=== PATIENT | male | born 1950 | race Caucasian/White ===

== ENCOUNTER → 2020-03-26 11:09 | Outpatient (CLI) | payer OTHER, SELFPAY ==
[2020-03-26 13:21] LABS: COVID19 -Nasal RAPID Negative (Negative)
== END ==
PROVIDERS: PCP Internal Medicine; Visit Provider Surgery
DX: Z11.59 Encounter for screening for other viral diseases (principal)
CPT/HCPCS: 87635; C9803

== ENCOUNTER 2020-03-27 09:08 | Day surgery (SDC) | payer OTHER, SELFPAY ==
[2020-03-23 13:22] VITALS: BMI 24.0
[2020-03-27] VITALS (7 sets, daily range): BP systolic 102–132; BP diastolic 64–75; PULSE 50–54; RESP 12–17; TEMP 35.7–36.2; O2SAT 97–98; BMI 24.0
[2020-03-27] MEDS: LACTATED RINGERS 1,000 ML 100 ML IV (09:42)
--- NOTE | 2020-03-27 10:25 | PM.HP.1 ---
History of Present Illness History of Present Illness Date Patient Seen: 03/27/20 Time Patient Seen: 10:26 Chief complaint: RIH REPAIR W/MESH Narrative: 69-year-old male he is here for an elective right inguinal hernia repair. No interval changes in health. Please see H&P from December 2019 for further detail. Patient History Medical History Heart murmur Irregular heartbeat Syncope Surgical History No history of previous surgery Family & Social History Family History Sister Multiple myeloma Social History: household members spouse Tobacco & Substance use: Smoking Status Former smoker alcohol intake current alcohol intake frequency 0-2 drinks per day Substance Use Type does not use Meds Home Medications and Allergies Home Medications Medication Instructions Recorded Confirmed Type ascorbate calcium (vitamin C) 500 500 mg PO DAILY 01/05/20 03/23/20 History mg tablet cholecalciferol (vitamin D3) 10 4,000 unit PO DAILY 01/05/20 03/23/20 History mcg (400 unit) capsule metoprolol succinate 25 mg capsule 25 mg PO DAILY 01/05/20 03/27/20 History sprinkle, ext. release 24 hr multivitamin 1 cap PO DAILY 01/05/20 03/23/20 History acetaminophen [Tylenol] 650 mg PO QID PRN #60 cap 03/27/20 Rx docusate sodium [Colace] 100 mg PO BID #30 cap 03/27/20 Rx oxycodone 5 mg PO Q6H PRN #30 tab 03/27/20 Rx Allergies Allergy/AdvReac Type Severity Reaction Status Date / Time guaifenesin Allergy Unknown Breathing Verified 03/23/20 13:27 constriction Review of Systems Review of Systems Narrative: A 10 point review of systems is negative except as noted in the HPI Exam Vital Signs (past 8 hours): - 03/27/20 09:21 Temperature 97.2 F L Pulse Rate 54 L Respiratory Rate 16 Blood Pressure 120/64 Pulse Oximetry 97 Oxygen Delivery Method Room Air Narrative Exam Narrative: General-no acute distress, well nourished HEENT-moist mucous membranes, no scleral icterus Neck-supple, no lymphadenopathy Chest- non labored respirations, clear to auscultation bilaterally Cardiac-regular rate no peripheral edema Abdomen-reducible right inguinal hernia Extremities-warm, well perfused Neurological-alert and oriented, no focal deficits Assessment & Plan Assessment & Plan narrative: 69-year-old man with a reducible right inguinal hernia here for elective repair. We discussed technical nature of the procedure the operative risks including bleeding infection recurrence damage to surrounding structures chronic pain. His questions have been answered he is in agreement with this plan will proceed to the operating room.
[2020-03-27] MEDS: CEFAZOLIN 2 GM/100 ML FROZ.PIGGY IV (10:37)
--- NOTE | 2020-03-27 10:56 | SUR.OPER ---
Supine on padded OR bed, head on pillow, arms secured on padded arm boards at <90 degrees abduction, legs uncrossed, safety belt at thigh, tape over blanket over lower legs.
[2020-03-27] MEDS: BUPIVACAINE 0.25% (PF) VIAL 30 ML INJ (11:06)
--- NOTE | 2020-03-27 12:02 | PM.OP.1 ---
Operative Date/Time/Diagnoses Date of procedure: 03/27/20 Time of procedure: 12:02 Pre-op diagnosis: Right inguinal hernia Post-op diagnosis: same Procedure & Clinicians Procedure: Open right inguinal hernia repair with mesh Same procedure as scheduled: Yes Indications: 69-year-old man symptomatic reducible right inguinal hernia here for elective repair Surgeon: Arcadio Delgado Anesthesia Type: General Operative Notes Findings: Direct and indirect hernia defect Estimated Blood Loss (mL): 20 Procedure in detail: The patient was placed supine on the table and bilateral lower extremity compression devices were applied. Anesthesia was induced they were intubated with an LMA and received 2g of Ancef. A time-out was performed. They were prepped and draped in sterile fashion. The right external inguinal ring and the anterior superior iliac crest were identified and marked. 1 finger breath above the inguinal ligament the skin was infiltrated with 0.25% bupivacaine. The skin incision was made here and the subcutaneous tissues were divided with electrocautery exposing the external oblique aponeurosis which was then opened along the direction of its fibers. Using blunt dissection the internal oblique aporneurosis was from the external oblique upper leaflet to identify the iliohypogastric nerve. Using a kittner the cord was carefully dissected away from the inguinal canal adjacent to the pubic tubercle. The cord including the vas deferens, testicular bloody supply, ilioguinal and genital nerve were encircled with a Lila drain. A direct floor defect was identified and it was reduced into the abdomen and the internal oblique aporneuorsis was approximated to the inguinal ligament with Ethibond suture to reapproximate the floor. The cremasteric fibers surrounding the cord were divided using electrocautery adjacent to the internal ring.. The vas deferens and the testicular vessels were preserved and protected. There was a small indirect hernia on the anterior medial aspect of the cord which was skeletonized away from the vas deferens and testicular blood supply. The indirect hernia was skeletonized back to the internal ring and reduced spontaneously into the abdomen. I selected a 7x 15 cm lightweight Pro Loop hernia mesh. The inferior medial aspect of the mesh was anchored to insertion of the rectus muscle to the pubic tubercle such that there was approximately 2 cm of tubercle overlap with Ethibond and then was run continuously along the inferior edge of the mesh to the shelving edge of the inguinal ligament. Interrupted 3 0 Vicryl suture was used to anchor the superior aspect of the mesh to the conjoined tendon in several places. The tails were then reapproximated loosely around the spermatic cord. The tails of the mesh were then tucked under the external oblique aponeurosis. The repair was checked for hemostasis. The wound was irrigated with sterile saline. The external oblique aponeurosis was reapproximated in a running fashion using 3 0 Vicryl. The subcutaneous tissues were reapproximated with 3 0 Vicryl skin closed with 4 0 Monocryl followed by the application of Dermabond. At the end of the operation I ensured that both testicles were within the scrotum. The sponge instrument count at the end operation was correct. The patient emerged from anesthesia was extubated and transferred to the postoperative care unit in stable condition. A total of 30 ml of of 0.25% bupivicaine was used to infiltrate the skin. Post-operative Condition: stable Disposition: same day surgery
[2020-03-27] MEDS: ACETAMINOPHEN 325 MG TABLET 650 MG PO (12:21)
[2020-03-27] MEDS: OXYCODONE IR 5 MG TABLET PO (12:22)
== END 2020-03-27 13:11 | disposition home or self-care (01) ==
PROVIDERS: PCP Internal Medicine; Referring Provider Surgery; Visit Provider Surgery
PROC: (CPT 49505; principal; 2020-03-27 10:15)
DX: K40.90 Unilateral inguinal hernia, without obstruction or gangrene, not specified as recurrent (principal); R01.1 Cardiac murmur, unspecified
CPT/HCPCS: 49505; C1781; J0690; J1100; J2405; J2704; J3010

== ENCOUNTER → 2022-03-19 09:12 | Outpatient (CLI) | payer OTHER, SELFPAY ==
[2022-03-19 12:27] LABS: COVID19 -Nasal RAPID Negative (Negative)
== END ==
PROVIDERS: PCP Internal Medicine; Visit Provider Surgery
DX: Z20.822 Contact with and (suspected) exposure to COVID-19 (principal); Z01.812 Encounter for preprocedural laboratory examination
CPT/HCPCS: 87635; C9803

== ENCOUNTER 2022-03-20 07:48 | Day surgery (SDC) | payer OTHER, SELFPAY ==
--- NOTE | 2022-03-20 | PATH_ITS ---
[facility] Accession Number: [id number] . 01 Material submitted: . colon - CECAL POLYP . 01 Diagnosis: Cecal Polyp, Biopsy: Tubular adenoma. MRV 03/24/2022 1324 Local . 01 Electronically signed: . Alex Fink MD, PhD, Pathologist NPI- [id number] . 01 Gross description: . CECAL POLYP: Received in formalin is 1 fragment(s) of rodriguez, soft tissue measuring 0.2 x 0.2 x 0.2 cm submitted entirely in 1 cassette(s) /CPE 03/22/2022 1030 Local . 01 Pathologist provided ICD-10: D12.0 . 01 CPT . 152419 Specimen Comment: A courtesy copy of this report has been sent to [phone] Performed at: 01 [facility] [address] [place] [address] [id number] MD Jag Burt MD Phone: [phone]
[2022-03-20 08:05] VITALS: BP 117/70; PULSE 53; RESP 16; TEMP 36.1; O2SAT 98; BMI 23.7
[2022-03-20] MEDS: LACTATED RINGERS 1,000 ML 84 ML IV (08:20)
--- NOTE | 2022-03-20 08:56 | PM.HP.1 ---
History of Present Illness History of Present Illness Date Patient Seen: 03/20/22 Time Patient Seen: 08:56 Chief complaint: SCREENING COLONOSCOPY Narrative: Deni is a 71-year-old man who is here for colonoscopy. He has had 2 in the past most recently about 5 years ago and he thinks some polyps were removed. He has no known family history of colon cancer. Patient History Medical History Benign prostatic hyperplasia with lower urinary tract symptoms Combined form of senile cataract Decreased libido Family history of prostate cancer Heart murmur High prostate specific antigen (PSA) Idiopathic osteoarthritis Inguinal hernia without obstruction or gangrene Irregular heartbeat Keratoconjunctivitis sicca not specified as Sjogren's Nonexudative age-related macular degeneration Posterior vitreous detachment SVT (supraventricular tachycardia) Syncope Surgical History No history of previous surgery Family & Social History Family History Sister Multiple myeloma Social History: household members spouse Tobacco & Substance use: Smoking Status Former smoker alcohol intake current alcohol intake frequency 0-2 drinks per day Substance Use Type does not use Meds Home Medications and Allergies Home Medications Medication Instructions Recorded Confirmed Type ascorbate calcium (vitamin C) 500 500 mg PO DAILY 01/05/20 05/13/21 History mg tablet cholecalciferol (vitamin D3) 10 4,000 unit PO DAILY 01/05/20 05/13/21 History mcg (400 unit) capsule metoprolol succinate 25 mg capsule 25 mg PO DAILY 01/05/20 05/13/21 History sprinkle, ext. release 24 hr multivitamin 1 cap PO DAILY 01/05/20 05/13/21 History acetaminophen 325 mg capsule 650 mg PO QID PRN pain #60 caps 03/27/20 03/20/22 Rx (Tylenol) benzonatate 100 mg capsule 100 mg PO BID-TID PRN cough #14 10/09/21 10/09/21 Rx caps Allergies Allergy/AdvReac Type Severity Reaction Status Date / Time guaifenesin Allergy Unknown Breathing Verified 03/20/22 08:02 constriction Exam Vital Signs (past 8 hours): - 03/20/22 08:05 Temperature 96.9 F L Pulse Rate 53 L Respiratory Rate 16 Blood Pressure 117/70 Pulse Oximetry 98 Oxygen Delivery Method Room Air Oxygen Delivery Method Room Air Const General: healthy appearing Assessment & Plan Assessment and plan (1) Personal history of colonic polyps: Status: Acute Plan 71-year-old man with a personal history of colon polyps here for colonoscopy. We reviewed the risks and benefits of colonoscopy he would like to proceed. Time Spent With Patient Critical Care time: I spent a total of [] minutes of critical care time on this patient's care today; this time is exclusive of procedural time.
--- NOTE | 2022-03-20 09:17 | PM.OP.COLON ---
Operative Date/Time/Diagnoses Date of procedure: 03/20/22 Time of procedure: 09:17 Pre-op diagnosis: Colon cancer screening and personal history of polyps Post-op diagnosis: same Procedure & Clinicians Study performed: Colonoscopy Same procedure as scheduled: Yes Surgeon: Eleuterio Tse Procedure Notes Procedure in detail: Surgeon: Eleuterio Tse MD Anesthesia: MAC by Dr. Vazquez Procedure: The patient was brought to the endoscopy suite, placed in left lateral decubitus position. The patient was connected to monitoring devices. A time-out was performed. Sedation was administered. Once the patient was adequately sedated, a digital rectal exam was performed and was normal. The scope was then inserted and advanced to the cecum where the appendiceal orifice was identified and photographed. The scope was then slowly withdrawn over greater than 6 minutes. The mucosa was thoroughly inspected. There was a 4 mm polyp cecum. It was removed with a cold snare. Were a few diverticula in the sigmoid colon. The scope was retroflexed in the rectum. Abnormalities were noted. The scope was straightened and removed. The patient was awakened and brought to recovery. Scope withdrawal time: 8 Sedation time: 12 EBL: 2 mL Findings: Small cecal polyp Post-procedure Recommendations: Will call with biopsy results Disposition: PACU
[2022-03-20 09:20] VITALS: BP 84/55; PULSE 53; RESP 16; TEMP 36.7; O2SAT 96
[2022-03-20 09:26] VITALS: BP 103/75; PULSE 70; RESP 16; O2SAT 98
[2022-03-20 09:30] VITALS: BP 98/72; PULSE 62; RESP 19; O2SAT 98
[2022-03-20 09:35] VITALS: BP 136/74; PULSE 61; RESP 15; TEMP 36.5; O2SAT 98
[2022-03-20 09:40] VITALS: BP 123/76; PULSE 54; RESP 17; TEMP 36.4; O2SAT 99
== END 2022-03-20 10:07 | disposition home or self-care (01) ==
PROVIDERS: PCP Internal Medicine; Referring Provider Surgery; Visit Provider Surgery
PROC: 0DJD8ZZ Inspection of Lower Intestinal Tract, Via Natural or Artificial Opening Endoscopic (ICD-10-PCS; CPT 45378; principal; 2022-03-20 08:45)
DX: Z12.11 Encounter for screening for malignant neoplasm of colon (principal); Z86.010 Personal history of colon polyps; D12.0 Benign neoplasm of cecum
CPT/HCPCS: 45385; J2704; J3010

== ENCOUNTER → 2022-04-25 07:59 | Outpatient (CLI) | payer OTHER, SELFPAY ==
--- NOTE | 2022-04-25 | DI.MRI.S_ITS ---
PROCEDURE: MR LUMBAR SPINE WO CON INDICATIONS: Sciatica left side TECHNIQUE: Noncontrast sagittal T1 spin echo and T2 fast echo, sagittal STIR, and T2 fast spin echo through the lumbar spine. COMPARISON: [facility], CR, L-SPINE 2-3 VIEWS, 03/10/2011, 12:56. [facility], , L-SPINE WITHOUT CONTRAST, 07/31/2011, 20:10. FINDINGS: Image quality: Excellent. Alignment and Curvature: There is normal bony alignment. Bone Marrow: 6 [id number] lumbar type vertebra are seen. For the purposes of this report, the lowest well-formed disc space is designated as L5-S1 and the thoracolumbar transitional element is designated as T12. This is in keeping with the numbering system used on the prior MRI from 2011. Marrow is of normal overall signal. No acute vertebral body compression fractures. A benign-appearing hemangioma is seen in the L1 vertebral body. Mild Modic degenerative endplate changes are seen at the right aspect of the L5 superior endplate with trace edema on STIR images. Spinal Cord: Conus medullaris terminates at the T12-L1 disc space level. Visualized cord demonstrates normal signal and size. Paraspinous Soft Tissues: No paravertebral masses. There is grade 2 fatty infiltration of the lower paraspinous musculature. T12-L1: There is mild disc desiccation and circumferential disc bulging with mild facet hypertrophy, which result in mild narrowing of the spinal canal without significant neural foraminal narrowing. Findings have mildly progressed when compared to the prior exam from 07/31/2011. L1-L2: Disc desiccation and mild circumferential disc bulging as well as mild bilateral facet hypertrophy, which result in mild narrowing of the spinal canal without significant neural foraminal narrowing. Findings have mildly progressed. L2-L3: Disc desiccation and mild circumferential disc bulging with mild to moderate bilateral facet hypertrophy. Findings result in mild narrowing of the spinal canal and mild bilateral neural foraminal narrowing, which appears relatively stable. L3-L4: Disc desiccation and circumferential disc bulging as well as moderate bilateral facet hypertrophy and buckling of the ligamentum flavum. Findings result in mild narrowing of the spinal canal, crowding of the lateral recesses, and moderate to severe right and moderate left neural foraminal narrowing. Findings have mildly progressed when compared to the MRI from 07/31/2011. L4-L5: There is disc desiccation and loss of disc space height with circumferential disc bulging, moderate facet hypertrophy bilaterally, and buckling of the ligamentum flavum. Additionally, there is a new left foraminal disc extrusion measuring approximately 13 x 7 x 9 mm. Findings result in effacement of the left neural foramen and impingement of the exiting left L4 nerve root. There is moderate narrowing of the spinal canal with crowding of the lateral recesses as well as moderate to severe right neural foraminal narrowing. L5-S1: Disc desiccation and mild circumferential disc bulging with moderate to severe right and moderate left facet hypertrophy. Findings result in moderate narrowing of the right left neural foramen without significant spinal canal stenosis or left neural foraminal narrowing. IMPRESSION: 1. 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 For this report, the lowest well-formed disc space is designated as L5-S1 and the thoracolumbar transitional element is designated T12. This is in keeping with the numbering system used on the MRI from 07/31/2011. 2. At L4-5, there is a new left foraminal disc extrusion that effaces the left neural foramen and impinges upon the exiting left L4 nerve root. There is also moderate to severe right neural foraminal narrowing and moderate narrowing of the spinal canal at this level. 3. At L3-4, degenerative changes result in moderate to severe right neural foraminal narrowing and moderate left neural foraminal narrowing with mild spinal canal narrowing. 4. Additional moderate degenerative changes as described in detail in the body of the report. Overall, findings have mildly progressed when compared to the prior MRI from 07/31/2011. Approved by: Sharif Garrido M.D. on 04/25/2022 at 13:45
== END ==
PROVIDERS: PCP Internal Medicine; Referring Provider Internal Medicine; Visit Provider Internal Medicine
DX: M51.16 Intervertebral disc disorders with radiculopathy, lumbar region (principal); M48.061 Spinal stenosis, lumbar region without neurogenic claudication; M47.26 Other spondylosis with radiculopathy, lumbar region
CPT/HCPCS: 72148